=== PATIENT | female | born 1975 | race Asian ===

== ENCOUNTER 2017-02-28 07:41 | Emergency (ER) | payer OTHER ==
--- NOTE | 2017-02-28 08:12 | ED Physician Chart ---
Chief Complaint/HPI - Patient Information Date Seen:: 02/28/17 Time Seen:: 08:00 Chief Complaint:: Vaginal spotting for about 10 days. History of Present Illness:: female with LNMP 02/17/17. Pt has noticed intermittent vaginal spotting for about 10 days. No pelvic or abdominal pain/cramp. No fever. Pt feels tired easily. No anorexia. No weight loss. No N/V/D. Last BM yesterday, which was normal in color/consistency. No hematochezia or melena. No gross hematuria, dysuria, urgency, or frequency with urination. No lightheadedness. Allergies:: Allergies Allergy/AdvReac Type Severity Reaction Status Date / Time No Known Allergies Allergy Verified 02/28/17 07:56 Vitals:: Vital Signs - 8 hr 02/28/17 07:49 Temp 98.0 F HR 93 RR 18 BP 123/84 O2 Sat % 98 Historian:: Patient Family MD/PCP:: Unknown LMP:: 02/17/17 Review:: Nurse's Note Reviewed Review of Systems - Review of Systems General/Constitutional: No fever, No weight loss, No weakness, No loss of appetite Skin: No skin lesions, No rash, No bruising Head: No headache, No light-headedness Eyes: No pain, No diplopia ENT: No nasal drainage, No sore throat Neck: No neck pain, No thyromegaly, No stiffness, No mass noted Cardio Vascular: No chest pain, No palpitations, No PND, No orthopnea, edema (? 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, Abnormal vaginal bleeding (?) Musculoskeletal: No bone or joint pain Endocrine: No polyuria, No polydipsia Psychiatric: No prior psych history, No depression Hematopoietic: No bruising, No lymphadenopathy Allergic/Immuno: No urticaria, No angioedema Neurological: No syncope, No focal symptoms, No weakness, No paresthesia, No headache, No confusion, No vertigo Past Medical History - Past Medical History Past Medical History: No significant medical hx Family History: None Social History: Non Smoker, No Alcohol, No Drug Use, , Employed, Other ( lives with her and her children.) Surgical History: (x 2. Last one at age 37.), other (Tonsillectomy at age 12.) Medication: None Family Medical History - Family Member Mother History Unknown: Yes Ethnicity: Non- Living Status: Still Living Physical Exam - Physical Examination General/Constitutional: Awake, Well-developed, well-nourished, Alert, No distress, GCS 15, Non-toxic appearing, Ambulatory Other Gen/Cons comments:: Breathes comfortably, speaks clearly, interacts normally, and ambulates without difficulty. Head: Atraumatic Eyes: Lids, conjuctiva normal, PERRL, EOMI Skin: Nl inspection, No rash, No skin lesions, No ecchymosis, Well hydrated, No lymphadenopathy ENMT: External ears, nose nl, TM canals nl, Nasal exam nl, Lips, teeth, gums nl , Oropharynx nl Neck: Nontender, Full ROM w/o pain, No JVD, No nuchal rigidity, No mass, No stridor Respiratory: Nl effort/Exclusion, Clear to Auscultation, No Wheeze/Rhonchi/Rales Cardio Vascular: RRR, No murmur, gallop, rubs GI: No tenderness/rebounding/guarding, No organomegaly, No hernia, Normal BS's, Nondistended Other GI comments:: Obese but soft. : No CVA tenderness Other comments:: Pelvic exam: deferred per pt's request. Extremities: No tenderness or effusion, Full ROM, normal strength in all extremities, No edema, Normal digits & nails Neuro/Psych: Alert/oriented (oriented x 3.), Judgement/insight normal, Mood normal, Normal gait, No focal deficits Misc: normal gait, Normal back, No paraspinal tenderness Labs/Radiology/EKG Results - Lab Results Results: Laboratory Tests 02/28/17 02/28/17 02/28/17 08:43 08:43 08:43 WBC 7.2 RBC 4.42 Hgb 11.0 L Hct 33.6 L MCV 75.9 L MCH 24.9 L MCHC Differential 32.9 RDW 15.0 Plt Count 287 MPV 7.8 Neutrophils % 70.8 Lymphocytes % 19.4 L Monocytes % 5.0 Eosinophils % 4.8 Basophils % 0.0 PT 9.7 INR 0.93 PTT (Actin FS) 27.8 Sodium 135 L Potassium 3.2 L Chloride 107 Carbon Dioxide 22.8 Anion Gap 8.4 BUN 16 Creatinine 0.8 Est GFR ( Amer) > 60.0 Est GFR (Non-Af Amer) > 60.0 BUN/Creatinine Ratio 20.0 Glucose 96 Calcium 9.0 Total Bilirubin 0.4 AST 38 ALT 52 Alkaline Phosphatase 51 Total Protein 6.8 Albumin 4.0 Globulin 2.8 Albumin/Globulin Ratio 1.4 TSH Urine Source Urine Color Urine Clarity Urine pH Ur Specific Craig Urine Protein Urine Glucose (UA) Urine Ketones Urine Blood Urine Nitrate Urine Bilirubin Urine Urobilinogen Ur Leukocyte Esterase Urine RBC Urine WBC Ur Epithelial Cells Urine Bacteria POC Ur Test 02/28/17 02/28/17 02/28/17 08:43 08:48 08:55 WBC RBC Hgb Hct MCV MCH MCHC Differential RDW Plt Count MPV Neutrophils % Lymphocytes % Monocytes % Eosinophils % Basophils % PT INR PTT (Actin FS) Sodium Potassium Chloride Carbon Dioxide Anion Gap BUN Creatinine Est GFR ( Amer) Est GFR (Non-Af Amer) BUN/Creatinine Ratio Glucose Calcium Total Bilirubin AST ALT Alkaline Phosphatase Total Protein Albumin Globulin Albumin/Globulin Ratio TSH 4.47 Urine Source MIDSTREAM Urine Color YELLOW Urine Clarity SL. CLOUDY Urine pH 6.5 Ur Specific Craig 1.025 Urine Protein 30 H Urine Glucose (UA) NEGATIVE Urine Ketones 15 H Urine Blood MODERATE H Urine Nitrate NEGATIVE Urine Bilirubin NEGATIVE Urine Urobilinogen 0.2 Ur Leukocyte Esterase NEGATIVE Urine RBC 2-5 Urine WBC 0-2 Ur Epithelial Cells FEW Urine Bacteria OCCASIONAL POC Ur Test Positive - Radiology Results Results: Pelvic sonogram (preliminary report): IUP seen measured 5w6d. Small subchorionic hemorrhage seen adjacent to yolk sac. No other significant findings. See report for details. ED Septic Shock - . Is Septic Shock (SBP<90, OR Lactate>4 mmol\L) present?: No - <6hrs of presentation: Vital Signs: Vital Signs - 8 hr 02/28/17 07:49 Temp 98.0 F HR 93 RR 18 BP 123/84 O2 Sat % 98 Reassessment (Disposition) - Reassessment Reassessment:: 1150 Pt remains stable. Pelvic sonogram report just became available. Lab and sonographic findings have been reviewed with pt. All questions answered. Pt requests to go home now and does not want further observation/management in hospital. Aftercare instructions have been given. Reassessment Condition:: Improved - Diagnosis Diagnosis:: Threatened . Stable. Mild hypokalemia. Stable. - Aftercare/Follow up Instructions Aftercare/Follow-Up Instructions:: Refer to Discharge Instructions Notes:: Bedrest today. No sexual intercourse until further physician direction. Increase oral intake of potassium rich foodstuffs such as banana, etc. F/U with Dr. Grimaldo ([facility]) or [facility] physician of pt's choice in one day for recheck and care with repeat lab studies: CBC, BMP, urinalysis. Return to ER immediately if condition worsens or if any further questions/ problems. Medication Prescribed:: None - Patient Disposition Discharge/Transfer:: Home Time:: 11:55 Condition at Disposition:: Stable, Improved ED Discharge Plan - Patient Disposition Admit/Discharge/Transfer: PT DISCHARGED HOME Condition at Disposition: Stable Instructions: Threatened Miscarriage Additional Instructions: Follow up with an [facility] doctor. If vagina bleeding increased, then go to ER right away. Rest. No heavy lifting. Accepting Physician: Jostin Sousa [Active] -
[2017-02-28 08:51] LABS: % EOSINOPHILS 4.8 % (0.0-5.0); % LYMPHOCYTES 19.4 % (20.0-50.0); % NEUTROPHILS 70.8 % (40.0-80.0); HEMATOCRIT 33.6 % (35.0-45.0); MEAN CELL VOLUME 75.9 fl (81-100); MEAN CORPUSCULAR HEMOGLOBIN 24.9 pg (27.0-31.0); MEAN CORPUSCULAR HGB CONC 32.9 pg (28.0-36.0); MEAN PLATELET VOLUME 7.8 fl; NEUTROPHILE ABSOLUTE 5.1 Th/cmm (1.8-8.0); PLATELET COUNT 287 Th/cmm (150-400); RED BLOOD COUNT 4.42 Mil/cmm (3.80-5.10); WHITE BLOOD COUNT 7.2 Th/cmm (4.8-10.8)
[2017-02-28 09:02] LABS: INR 0.93 (0.5-1.4); PROTHROMBIN TIME (TEST) 9.7 SECONDS (9.5-11.5)
[2017-02-28 09:06] LABS: ALB/GLOB RATIO 1.4 (1.0-1.8); ALKALINE PHOSPHATASE 51 U/L (34-104); ANION GAP 8.4 (7.0-16.0); BILIRUBIN,TOTAL 0.4 mg/dL (0.3-1.0); BUN - UREA NITROGEN 16 mg/dL (7-25); CARBON DIOXIDE 22.8 mEq/L (21.0-31.0); CHLORIDE 107 mEq/L (98-107); CREATININE - SERUM 0.8 mg/dL (0.6-1.2); GLUCOSE 96 mg/dL (70-105); POTASSIUM SERUM 3.2 mEq/L (3.5-5.1); SGOT 38 U/L (13-39); SGPT/ALT 52 U/L (7-52); SODIUM SERUM 135 mEq/L (136-145)
[2017-02-28 09:21] LABS: URINE BILIRUBIN NEGATIVE (NEGATIVE); URINE BLOOD MODERATE (NEGATIVE); URINE COLOR YELLOW; URINE GLUCOSE (UA) NEGATIVE (NEGATIVE); URINE KETONE 15 mg/dL (NEGATIVE); URINE PH 6.5; URINE PROTEIN 30 mg/dL (NEGATIVE); URINE UROBILINOGEN 0.2 E.U./dL (0.2 - 1.0)
[2017-02-28 09:25] LABS: URINE BACTERIA OCCASIONAL /hpf (NONE SEEN); URINE EPITHELIAL CELLS FEW /lpf (FEW); URINE WBC 0-2 /hpf (0-5)
[2017-02-28] MEDS ORDERED: Potassium Chloride 20 mEq ER Tab PO ONE (10:20)
[2017-02-28] MEDS: Potassium Chloride 20 mEq ER Tab PO ONE (10:21)
--- NOTE | 2017-02-28 12:33 | Diagnostic Imaging Report ---
Ultrasound pelvis HISTORY: female with vaginal spotting for 10 days. Positive test. COMPARISON: None Technique: Longitudinal and transverse sonographic sector images of the pelvis were obtained transabdominally and transvaginally. FINDINGS: Exam is limited due to bowel gas. The uterus measures 11.8 x 5.1 x 6.3 cm. There is echogenic area along the fundal portion which may represent a very early gestational sac. This region measures 1.2 cm which should correspond to gestational age of 5 weeks and 6 days +/-1 week. A faintly visualized yolk sac is noted. There is suggestion of a small subchorionic hemorrhage. This measures 1.6 x 0.5 cm. The endometrium measures 2 cm. No evidence of free fluid. The ovaries are not visualized. Small nabothian cysts of cervix are noted. IMPRESSION: Findings suggestive of a very early gestational sac with yolk sac faintly visualized. No pole was identified at this early in . There is also suggestion of a small adjacent subchorionic hemorrhage measuring 1.6 x 0.5 cm. As such, clinical correlation and correlation with serial beta hCG levels and ultrasound in 5-7 days is recommended for further assessment of viability. The ovaries are not visualized. No evidence of free fluid. In the presence of a positive test, ectopic gestation should be excluded.
== END 2017-02-28 11:55 | disposition home or self-care (01) ==
LOC: EEVIPCON 07:41 → ER 07:41
DX: O20.0 Threatened abortion (principal); E87.6 Hypokalemia; Z3A.01 Less than 8 weeks gestation of pregnancy
CPT/HCPCS: 36415-UA; 76856-TC; 80053-TC; 81001-TC; 81025-TC; 84443-TC; 85025-TC; 85610-TC

== ENCOUNTER 2018-07-24 08:01 | Emergency (ER) | payer OTHER ==
[2018-07-24] MEDS ORDERED: Fluorescein Sodium 1 mg Ophth Strip ONE (08:10)
[2018-07-24] MEDS ORDERED: TETRACAINE HCL 0.5% OPHTH SOLN 4ML BOTTLE ONE (08:11)
[2018-07-24] MEDS ORDERED: Dacriose Ophth Soln 120 mL Bottle ONE (08:11)
[2018-07-24] MEDS ORDERED: Tetracaine 0.5% Ophth Soln 15 mL Soln RIGHT EYE ONE (08:21)
[2018-07-24] MEDS ORDERED: Dacriose Ophth Soln 120 mL Bottle RIGHT EYE ONE (08:21)
[2018-07-24] MEDS ORDERED: Fluorescein Sodium 1 mg Ophth Strip RIGHT EYE ONE (08:21)
--- NOTE | 2018-07-29 14:53 | ER Physician Documentation ---
DATE OF SERVICE: 07/24/2018 CHIEF COMPLAINT: Right eye pain with photophobia in a contact lens user. HISTORY OF PRESENT ILLNESS: This is a female who presents with a complaint of right eye pain and redness, status post removal of her contacts a day before for irritation. She does have a history of dry eyes. She has had prior corneal abrasions in the past. She is wearing glasses at this time. REVIEW OF SYSTEMS: Positive for right eye pain, eyelid swelling and redness of the sclerae as well as photophobia. Review of systems negative for fevers, chills, nausea, vomiting, diarrhea, or constipation. PHYSICAL EXAMINATION: GENERAL: The patient is a well-developed, well-nourished female in pain. HEENT: Her sclerae are injected on the right throughout. There is no discharge present. There is no discharge present on the eyelashes. Her upper and lower eyelids were everted looking for foreign bodies and are negative. Fluorescein exam was performed and two areas lit up with corneal abrasions at 10 o'clock on her right eye. There are no foreign bodies present throughout. The patient's eye was irrigated to remove the fluorescin. ASSESSMENT AND PLAN: Right eye corneal abrasions x2 in a contact lens user. She was told not to wear contacts and to start ciprofloxacin eye drops days 1 and 2: one to two drops right eye every 2 hours and days 3 to 7, 1-2 drops right eye every 4 hours. She is to follow up with her eye doctor within 24 hours. JOB# [id number] [facility] SYSTEM[facility]
== END 2018-07-24 09:06 | disposition home or self-care (01) ==
LOC: ER 08:01
DX: H18.821 Corneal disorder due to contact lens, right eye (principal)
CPT/HCPCS: Z7502

== ENCOUNTER 2019-02-24 13:39 | Emergency (ER) | payer OTHER ==
--- NOTE | 2019-02-24 14:39 | ED Physician Chart ---
ED Chief Complaint/HPI - Patient Information Date Seen:: 02/24/19 Time Seen:: 14:40 Chief Complaint:: Right Thumb Needle Stick History of Present Illness:: onset x 1/2 hour [employer] of an accidental right thumb needle stick; pt's last tetanus shot: < 5 years; UTD; pt denies any other trauma, H/As, neck pain, C/P, SOB, Abd. pain, or urinary s/s; pt denies paresthesias, weakness, dizziness, vertigo, visual or gait changes; pt denies right thumb pain Allergies:: Allergies Allergy/AdvReac Type Severity Reaction Status Date / Time No Known Allergies Allergy Verified 02/24/19 14:38 Historian:: Patient Review:: Nurse's Note Reviewed, Old Chart Reviewed ED Review of Systems - Review of Systems General/Constitutional: No fever, No chills, No weight loss, No weakness, No diaphoresis, No edema, No loss of appetite Skin: No skin lesions, No rash, No bruising Head: No headache, No light-headedness Eyes: No loss of vision, No pain, No diplopia ENT: No earache, No nasal drainage, No sore throat, No tinnitus Neck: No neck pain, No swelling, No thyromegaly, No stiffness, No mass noted Cardio Vascular: No chest pain, No palpitations, No PND, No orthopnea, No edema Pulmonary: No SOB, No cough, No sputum, No wheezing GI: No nausea, No vomiting, No diarrhea, No pain, No melena, No hematochezia, No constipation, No hematemesis G/U: No dysuria, No frequency, No hematuria, 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, No abnormal vaginal bleed, No contraction Musculoskeletal: No bone or joint pain, No back pain, No muscle pain Endocrine: No polyuria, No polydipsia Psychiatric: No prior psych history, No depression, No anxiety, No suicidal ideation, No homicidal ideation, No auditory hallucination, No visual hallucination Hematopoietic: No bruising, No lymphadenopathy Allergic/Immuno: No urticaria, No angioedema Neurological: No syncope, No focal symptoms, No weakness, No paresthesia, No headache, No seizure, No dizziness, No confusion, No vertigo ED Past Medical History - Past Medical History Obtainable: Yes Past Medical History: No significant medical hx Family History: None Social History: Non Smoker, No Alcohol, No Drug Use, , Employed Surgical History: None Psychiatricy History: None Medication: Reviewed Family Medical History - Family Member Mother History Unknown: Yes Ethnicity: Non- Living Status: Still Living ED Physical Exam - Physical Examination General/Constitutional: Awake, Well-developed, well-nourished, Alert, No distress, GCS 15, Non-toxic appearing, Ambulatory Head: Atraumatic Eyes: Lids, conjuctiva normal, PERRL, EOMI Skin: Nl inspection, No rash, No skin lesions, No ecchymosis, Well hydrated, No lymphadenopathy Other Skin comments:: right thumb PW at volar DP region; no FBs; no bleeding; no joint tenderness; no septic joints; full active ROMs of all joints; no ligament instability; no cellulitis; no ligament laxity; good motor, tendon, and sensory functions; good NV functions ENMT: External ears, nose nl, TM canals nl, Nasal exam nl, Lips, teeth, gums nl , Oropharynx nl, Tonsils nl Neck: Nontender, Full ROM w/o pain, No JVD, No nuchal rigidity, No bruit, No mass, No stridor Other Neck comments:: supple; no meningeal signs; no cervical tenderness; no bruits Respiratory: Nl effort/Exclusion, Clear to Auscultation, No Wheeze/Rhonchi/Rales Cardio Vascular: RRR, No murmur, gallop, rubs, NL S1 S2, Carotid/Femoral/Distal pulses equal bilaterally GI: No tenderness/rebounding/guarding, No organomegaly, No hernia, Normal BS's, Nondistended, No mass/bruits, No McBurney tenderness Other GI comments:: no pulsatile masses : No CVA tenderness Extremities: No tenderness or effusion, Full ROM, normal strength in all extremities, No edema, Normal digits & nails Other Extremities comments:: as above Neuro/Psych: Alert/oriented, DTR's symmetric, Normal sensory exam, Normal motor strength, Judgement/insight normal, Mood normal, Normal gait, No focal deficits Other Neuro/Psych comments:: no focal signs Misc: Normal back, No paraspinal tenderness ED Labs/Radiology/EKG Results - Lab Results Comments:: pending ED Septic Shock - . Is Septic Shock (SBP<90, OR Lactate>4 mmol\L) present?: No ED Reassessment (Disposition) - Reassessment Reassessment:: pt is asymptomatic upon discharge Reassessment Condition:: Improved - Diagnosis Diagnosis:: Right Thumb Puncture Wound; Right Thumb Needle Stick Injury; Puncture Wound - Aftercare/Follow up Instructions Aftercare/Follow-Up Instructions:: Counseled pt regarding lab results/diagnosis & need follow up, Refer to Discharge Instructions, Counseled pt & family regarding lab results/diagnosis & need follow up Medication Prescribed:: Neosporin Ointment bid x 14 days; Wound Care Instructions - Patient Disposition Discharge/Transfer:: Home Condition at Disposition:: Stable, Improved (RTER prn if existing s/s reoccur and/or get worse and/or any other new s/s occur; ACIs given for all above Dx; Refer to Infectious Disease Specialist/Flight Engineer WANDA; F/U with PMD in one day or prn; RTER prn if concerned)
== END 2019-02-24 14:45 | disposition home or self-care (01) ==
LOC: ER 13:39
DX: S61.031A Puncture wound without foreign body of right thumb without damage to nail, initial encounter (principal); W46.1XXA Contact with contaminated hypodermic needle, initial encounter; Y93.89 Activity, other specified; Y92.89 Other specified places as the place of occurrence of the external cause; Y99.8 Other external cause status
CPT/HCPCS: 36415-UA; 86703-TC; 86704-90; 86707-90; 86803-90; 87350-90; Z7502